=== PATIENT | female | born 1980 | race African-American/Black ===

== ENCOUNTER 2018-03-09 17:08 | Emergency (ER) | payer MEDICARE ==
[~2018-03-09] VITALS: Ht 162.6 cm; Wt 100.9 kg
[2018-03-09 17:16] VITALS: Ht 162.6 cm; Wt 100.9 kg
[2018-03-09] MEDS ORDERED: [UNRECOGNIZED DRUG - REMARK] (17:19)
[2018-03-09 17:55] LABS: BASOPHILS 0.3 % (0-2); EOSINOPHILS 2.3 % (0-7); HEMATOCRIT 40.1 % (36.0-48.0); HEMOGLOBIN 13.3 g/dL (12-16); IMMATURE GRANULOCYTES 0.4 % (0-5); LYMPHOCYTES 29.3 % (15-50); MCHC 33.2 g/dL (31.0-37.0); MCV 87.6 fL (80.0-100.0); MEAN PLATELET VOLUME 10.4 fL (7.4-10.4); MONOCYTES 8.2 % (2-11); NEUTROPHILS 59.5 % (40-80); PLATELET COUNT 231 10x3/uL (130-400); RBC 4.58 10x6/uL (4.00-5.40); RDW 14.1 % (11.5-14.5); WBC 7.1 10x3/uL (4.8-10.8)
[2018-03-09 18:00] LABS: APPEARANCE CLEAR (CLEAR); BILIRUBIN NEGATIVE (NEGATIVE); COLOR YELLOW (YELLOW); GLUCOSE NEGATIVE (NEGATIVE); KETONE NEGATIVE (NEGATIVE); NITRITE NEGATIVE (NEGATIVE); PROTEIN NEGATIVE (NEGATIVE); SPECIFIC GRAVITY 1.025 (1.005-1.020); UROBILINOGEN NORMAL (NORMAL)
[2018-03-09 18:10] LABS: ALBUMIN 3.8 g/dL (3.4-5.0); ALKALINE PHOSPHATASE 54 U/L (46-116); ALT (SGPT) 25 U/L (10-68); BILIRUBIN - TOTAL 0.37 mg/dL (0.2-1.3); CALC OSMOLALITY 278 mosm/kg (275-300); CALCIUM 8.7 mg/dL (8.5-10.1); CARBON DIOXIDE 31.4 mmol/L (21.0-32.0); CHLORIDE - SERUM 104 mmol/L (98-107); PROTEIN - SERUM 7.5 g/dL (6.4-8.2); SODIUM 141 mmol/L (136-145); UREA NITROGEN 13 mg/dL (7-18); eGFR NON AFRICAN AMERICAN 66 mL/min (90-120)
[2018-03-09 18:11] LABS: GLUCOSE 69 mg/dL (74-106)
[2018-03-09 18:12] LABS: AMYLASE - SERUM 49 U/L (25-115); LIPASE 121 U/L (73-393); TROPONIN-I < 0.017 ng/mL (0.000-0.060)
[2018-03-09 20:23] VITALS: BP 106/69
== END 2018-03-09 20:23 | disposition home or self-care (01) ==
LOC: D.ER 17:08
PROVIDERS: Emergency Medicine
DX: K42.9 Umbilical hernia without obstruction or gangrene (principal)

== ENCOUNTER 2018-10-08 15:42 | Emergency (ER) | payer MEDICARE ==
[~2018-10-08] VITALS: Ht 162.6 cm; Wt 100.9 kg
[~2018-10-08 15:42] MED LIST: [UNRECOGNIZED DRUG - REMARK]
[2018-10-08 15:59] VITALS: Ht 162.6 cm; Wt 100.9 kg
[2018-10-08 18:08] LABS: APPEARANCE CLEAR (CLEAR); BILIRUBIN NEGATIVE (NEGATIVE); COLOR STRAW (YELLOW); GLUCOSE NEGATIVE (NEGATIVE); KETONE NEGATIVE (NEGATIVE); NITRITE NEGATIVE (NEGATIVE); PROTEIN NEGATIVE (NEGATIVE); UROBILINOGEN NORMAL (NORMAL)
[2018-10-08] MEDS ORDERED: ROBAXIN500 MG PO (18:47)
[2018-10-08] MEDS ORDERED: ZOFRAN ODT4 MG/UDTAB PO (18:47)
[2018-10-08 19:34] LABS: HCG URINE NEGATIVE (NEGATIVE)
[2018-10-08 20:28] VITALS: BP 126/72
== END 2018-10-08 20:28 | disposition home or self-care (01) ==
LOC: D.ER 15:42
PROVIDERS: Emergency Medicine
DX: S16.1XXA Strain of muscle, fascia and tendon at neck level, initial encounter (principal); V43.52XA Car driver injured in collision with other type car in traffic accident, initial encounter; Y93.89 Activity, other specified; Y92.410 Unspecified street and highway as the place of occurrence of the external cause; S39.012A Strain of muscle, fascia and tendon of lower back, initial encounter; M62.838 Other muscle spasm